=== PATIENT | female | born 1995 | race Caucasian/White ===

== ENCOUNTER 2022-06-15 17:12 | Emergency (ER) | payer BC ==
[~2022-06-15] VITALS: Ht 167.6 cm; Wt 97.7 kg
[2022-06-15 17:19] VITALS: BP 104/55; TEMP 97.6
[2022-06-15] MEDS ORDERED: LEXAPRO20 MG PO (17:35)
[2022-06-15] MEDS ORDERED: NORCO 325 MG-51 TAB PO (18:52)
[2022-06-15] MEDS ORDERED: CEPHALEXIN500 M1 PO (18:52)
[2022-06-15 19:01] VITALS: PULSE 64
== END 2022-06-15 19:01 | disposition home or self-care (01) ==
LOC: COL.ER 17:12
DX: S62.614B Displaced fracture of proximal phalanx of right ring finger, initial encounter for open fracture (principal); S62.616B Displaced fracture of proximal phalanx of right little finger, initial encounter for open fracture; S00.11XA Contusion of right eyelid and periocular area, initial encounter; S80.212A Abrasion, left knee, initial encounter; W01.0XXA Fall on same level from slipping, tripping and stumbling without subsequent striking against object, initial encounter; W25.XXXA Contact with sharp glass, initial encounter; Y92.480 Sidewalk as the place of occurrence of the external cause; Y93.01 Activity, walking, marching and hiking